=== PATIENT | male | born 1995 | race Caucasian/White ===

== ENCOUNTER 2021-11-15 16:06 | Emergency (ER) | payer OTHER ==
[~2021-11-15] VITALS: Ht 177.8 cm; Wt 88.6 kg
[2021-11-15] MEDS ORDERED: LIDOCAINE 2% MDV 20ML VIAL SC ONE (18:30)
[2021-11-15] MEDS ORDERED: CEPH500C PO (20:30)
[2021-11-15] MEDS ORDERED: BACI28.43 TOP (20:30)
[2021-11-15 20:33] VITALS: BP 121/80
== END 2021-11-15 20:37 | disposition home or self-care (01) ==
LOC: M ED 16:06
DX: S61.213A Laceration without foreign body of left middle finger without damage to nail, initial encounter (principal); W23.0XXA Caught, crushed, jammed, or pinched between moving objects, initial encounter; Y92.9 Unspecified place or not applicable; Y93.9 Activity, unspecified; Y99.1 Military activity